=== PATIENT | male | born 1950 | race Caucasian/White ===

== ENCOUNTER → 2016-11-03 | Outpatient (CLI) | payer OTHER, MEDICARE | LOC: BHLMT 15:00 | PROVIDERS: ATTEND Internal Medicine Cardiovascular Disease | DX: I25.10 Atherosclerotic heart disease of native coronary artery without angina pectoris (principal); E78.5 Hyperlipidemia, unspecified; I10 Essential (primary) hypertension | CPT/HCPCS: 93005-PO ==

== ENCOUNTER 2017-04-26 17:34 | Observation (INO) | payer OTHER, MEDICARE ==
--- NOTE | 2017-04-26 17:43 | CPEKG ---
Heart Rate: 84 RR Interval: 714 P-R Interval: 204 QRSD Interval: 126 QT Interval: 404 QTC Interval: 478 P [place]: 74 QRS [place]: 73 T Wave [place]: 54 EKG Severity - ABNORMAL ECG - EKG Impression: SINUS RHYTHM EKG Impression: RIGHT BUNDLE BRANCH BLOCK Electronically Signed By: Osman Camarena 27-Apr-2017 08:13:40
[2017-04-26 17:58] LABS: % IMMATURE GRANULYOCYTES 0.3 % (0.0-1.1); ABSOLUTE IMMATURE GRANULOCYTES 0.03 10^3/uL (0.00-0.10); ADD DIFF? NO; ADD MORPH? NO; ADD SCAN? NO; ATYPICAL LYMPHOCYTE FLAG 10 (0-99); FRAGMENT RBC FLAG 0 (0-99); HEMOGLOBIN 17.5 g/dL (13.7-17.5); LEFT SHIFT FLG 0 (0-99); LIPEMIA HEMOLYSIS FLAG 90 (0-99); MEAN CELL HEMOGLOBIN CONCENTR. 35.7 g/dL (32.4-36.7); MEAN CELL VOLUME 89.6 fL (81.5-99.8); MEAN PLATELET VOLUME 9.5 fL (8.7-11.7); PLATELET CLUMPS FLAG 0 (0-99); PLATELET COUNT 238 10^3/uL (150-400); RED BLOOD CELL COUNT 5.47 10^6/uL (4.40-6.38); RED CELL DISTRIBUTION WIDTH 12.5 % (11.5-15.2)
--- NOTE | 2017-04-26 18:05 | EDPHY ---
General Narrative: CHIEF COMPLAINT: Chest pain, shortness of breath HISTORY OF PRESENT ILLNESS: Patient complains of chest pain, high blood pressure, headache and shortness of breath. The high blood pressure and headache started 3 days ago. Gradual onset. Intermittent duration. [id number]. No neck pain or stiffness. Some shortness of breath with this. Chest pain started 2 hours prior to arrival. This is left-sided. It radiates to the back. Worse with exertion. Shortness of breath is associated with. No nausea or vomiting. Some diaphoresis. Some cold chills. No recent travel or trauma. No history of venous thrombolic event. Does have extensive coronary artery disease status post CABG and stents. Positive family history for coronary artery disease. No other associated complaints or modifying factors. REVIEW OF SYSTEMS: Ten systems reviewed and are negative unless otherwise noted in the HPI PCP: Dr. Lan SPECIALISTS: Dr. Pope PAST MEDICAL HISTORY: Coronary artery disease status post CABG a stent placement PAST SURGICAL HISTORY: CABG, hernia repair, finger amputation SOCIAL HISTORY: Nonsmoker. No alcohol. Lives here with his FAMILY HISTORY: Noncontributory EXAMINATION General Appearance: Alert, no distress Head: normocephalic, atraumatic Eyes: Pupils equal and round, no conjunctival pallor or injection ENT, Mouth: Mucous membranes moist Neck: Normal inspection, supple, non-tender Respiratory: Lungs are clear to auscultation. No wheezing, rhonchi or crackles Cardiovascular: Regular rate and rhythm. No murmur. Gastrointestinal: Abdomen is soft and nontender Back: non-tender, no bony abnormalities Neurological: A&O, nonfocal, normal gait Skin: Warm and dry, no rash Extremities: Nontender, no pedal edema Psychiatric: Mood and affect normal DIFFERENTIAL DIAGNOSES: Including but not limited to ACS, PE, pneumonia, CHF MDM: 6:03 p.m. Chest pain of 2 hours duration with shortness of breath and dyspnea on exertion. Patient is mildly tachypneic at time of arrival. This is a patient with extensive coronary artery disease with CABG, 3 stents prior CABG, 2 stents post CABG. He has not have a stress test or heart catheterization with in 2 years. Does not know what is echocardiogram was. I have ordered cardiac labs, D-dimer, chest x-ray. Plan for admission to the hospital for serial troponins 7:00 p.m. Chest x-ray unremarkable. Laboratory studies are negative, but troponin is pending. 8:00 p.m. Troponin is negative. D-dimer negative. Serum creatinine is mildly elevated but relatively close to baseline. I discussed the case with the hospitalist. He will be admitted in stable condition for serial troponins. Repeat EKG has been requested by Dr. Man and this is currently being obtained. Suspect that this is stable angina versus unstable angina. - Diagnostics Imaging Results: Imaging Impressions Chest X-Ray 04/26/17 18:02 Impression: Clear lungs. No acute cardiopulmonary process. - History Smoking Status: Never smoked - Objective Vital Signs: Initial Vital Signs Temperature (C) 97.5 F 04/26/17 17:48 Heart Rate 76 04/26/17 17:48 Respiratory Rate 21 H 04/26/17 17:48 Blood Pressure 111/74 04/26/17 17:48 O2 Sat (%) 98 04/26/17 17:48 O2 Delivery Mode Room Air Allergies/Adverse Reactions: clindamycin Allergy (Verified 04/26/17 17:46) Home Medications: Medication Instructions Recorded Aspirin [Aspirin 325 mg (*)] 325 mg PO DAILY 06/10/16 Atorvastatin Calcium [Lipitor 80 80 mg PO DAILY 06/10/16 mg] DULoxetine [Cymbalta 60 MG (*)] 60 mg PO DAILY 06/10/16 Herbals/Supplements -Info Only 1 ea PO DAILY 06/10/16 Hydrochlorothiazide [HCTZ (*)] 25 mg PO DAILY 06/10/16 Lisinopril [Zestril 10 mg (*)] 10 mg PO DAILY 06/10/16 Multivitamins [Multivitamin (*)] 1 each PO DAILY 06/10/16 Nebivolol HCl [Bystolic 5 mg (*)] 5 mg PO DAILY 06/10/16 [place]-3 Fatty Acids [Fish Oil 1000 1,000 mg PO DAILY 06/10/16 mg (*)] traMADol [Ultram 50 mg (*)] 50 mg PO HS 06/10/16 Clopidogrel Bisulfate [Plavix (*)] 75 mg PO HS 04/26/17 Docusate Sodium [Colace 100 MG (*)] 100 mg PO Q2D 04/26/17 traZODone [traZODONE 100MG (*)] 100 mg PO HS 04/26/17 Laboratory Results: Laboratory Results 04/26/17 17:47 04/26/17 17:47 04/26/17 04/26/17 04/26/17 17:47 17:47 17:47 WBC 9.84 10^3/uL H 10^3/uL (3.80-9.50) RBC 5.47 10^6/uL 10^6/uL (4.40-6.38) Hgb 17.5 g/dL g/dL (13.7-17.5) Hct 49.0 % % (40.0-51.0) MCV 89.6 fL fL (81.5-99.8) MCH 32.0 pg pg (27.9-34.1) MCHC 35.7 g/dL g/dL (32.4-36.7) RDW 12.5 % % (11.5-15.2) Plt Count 238 10^3/uL 10^3/uL (150-400) MPV 9.5 fL fL (8.7-11.7) Neut % (Auto) 79.2 % H % (39.3-74.2) Lymph % (Auto) 10.4 % L % (15.0-45.0) [place] % (Auto) 8.7 % % (4.5-13.0) Eos % (Auto) 0.9 % % (0.6-7.6) Baso % (Auto) 0.5 % % (0.3-1.7) Nucleat RBC Rel Count 0.0 % % (0.0-0.2) Absolute Neuts (auto) 7.79 10^3/uL H 10^3/uL (1.70-6.50) Absolute Lymphs (auto) 1.02 10^3/uL 10^3/uL (1.00-3.00) Absolute Monos (auto) 0.86 10^3/uL H 10^3/uL (0.30-0.80) Absolute Eos (auto) 0.09 10^3/uL 10^3/uL (0.03-0.40) Absolute Basos (auto) 0.05 10^3/uL 10^3/uL (0.02-0.10) Absolute Nucleated RBC 0.00 10^3/uL 10^3/uL (0-0.01) Immature Gran % 0.3 % % (0.0-1.1) Immature Gran # 0.03 10^3/uL 10^3/uL (0.00-0.10) PT 13.4 SEC SEC (12.0-15.0) INR 1.03 (0.83-1.16) APTT 29.2 SEC SEC (23.0-38.0) D-Dimer < 0.27 ug/mLFEU ug/mLFEU (0.00-0.50) Sodium 140 mEq/L mEq/L (134-144) Potassium 4.0 mEq/L mEq/L (3.5-5.2) Chloride 106 mEq/L mEq/L (97-110) Carbon Dioxide 19 mEq/l L mEq/l (22-31) Anion Gap 15 mEq/L mEq/L (8-16) BUN 29 mg/dL H mg/dL (7-23) Creatinine 1.5 mg/dL H mg/dL (0.7-1.3) Estimated GFR 47 Glucose 158 mg/dL H mg/dL (70-100) Calcium 10.3 mg/dL mg/dL (8.5-10.4) Total Bilirubin 1.4 mg/dL mg/dL (0.1-1.4) Conjugated Bilirubin 0.4 mg/dL mg/dL (0.0-0.5) Unconjugated Bilirubin 1.0 mg/dL mg/dL (0.0-1.1) AST 30 IU/L IU/L (17-59) ALT 55 IU/L IU/L (21-72) Alkaline Phosphatase 102 IU/L IU/L (38-126) Troponin I < 0.012 ng/mL ng/mL (0.000-0.034) NT-Pro-B Natriuret Pep 459 pg/mL H pg/mL (0-125) Total Protein 7.5 g/dL g/dL (6.3-8.2) Albumin 4.7 g/dL g/dL (3.5-5.0) Lipase 66 IU/L IU/L (23-300) Medications Given: Acetaminophen (Tylenol) 650 mg PO Q4HRS PRN PRN Reason: Pain, Mild/Fever, Can Take PO Stop: 10/23/17 19:17 Last Admin: 04/26/17 21:28 Dose: 650 mg Atorvastatin Calcium (Lipitor) 80 mg PO HS [facility] Stop: 10/23/17 20:59 Last Admin: 04/26/17 21:28 Dose: 80 mg Clopidogrel Bisulfate (Plavix) 75 mg PO HS [facility] Stop: 10/23/17 20:59 Last Admin: 04/26/17 21:28 Dose: 75 mg Duloxetine HCl (Cymbalta) 60 mg PO [facility] Stop: 10/23/17 20:59 Last Admin: 04/26/17 21:27 Dose: 60 mg Heparin Sodium (Porcine) (Heparin 50 Units/Ml (Premix)) 500 mls @ 0 mls/hr IV CONT FROYLAN; Per Protocol PRN Reason: Protocol Stop: 10/23/17 19:44 Last Admin: 04/26/17 21:13 Dose: 500 mls Sodium Chloride (Ns) 1,000 mls @ 75 mls/hr IV CONT [facility] Stop: 10/23/17 19:59 Last Admin: 04/26/17 21:14 Dose: 1,000 mls Tramadol HCl (Ultram) 100 mg PO BID [facility] Stop: 10/23/17 20:59 Last Admin: 04/26/17 21:27 Dose: 100 mg Trazodone HCl (Trazodone) 100 mg PO [facility] Stop: 10/23/17 20:59 Last Admin: 04/26/17 21:28 Dose: 100 mg Discontinued Medications Aspirin (Aspirin) 325 mg PO EDNOW ONE Stop: 04/26/17 19:24 Last Admin: 04/26/17 21:21 Dose: Not Given Aspirin (Aspirin) 325 mg PO EDNOW ONE Stop: 04/26/17 19:24 Last Admin: 04/26/17 21:19 Dose: Not Given Heparin Sodium (Porcine) (Heparin Injection) 0 unit IVP ONCE ONE PRN Reason: Protocol Stop: 04/26/17 19:46 Last Admin: 04/26/17 21:11 Dose: 5,882 units Departure - Departure Disposition: [facility] Acute Clinical Impression: Stable angina CAD (coronary artery disease) Qualifiers: Coronary Disease-Associated Artery/Lesion type: unspecified vessel or lesion type [place] vs. transplanted heart: [place] heart Associated angina: with stable angina Qualified Code(s): I25.118 - Atherosclerotic heart disease of [place] coronary artery with other forms of angina pectoris Condition: Good Referrals: Lexi Lan MD [[facility] Primary Care Provider] - As per Instructions
[2017-04-26 18:09] LABS: INR 1.03 (0.83-1.16); PROTIME(PATIENT) 13.4 SEC (12.0-15.0)
[2017-04-26 18:10] LABS: APTT 29.2 SEC (23.0-38.0)
[2017-04-26 18:21] LABS: ALANINE AMINOTRANSFERASE 55 IU/L (21-72); ALBUMIN 4.7 g/dL (3.5-5.0); ALKALINE PHOSPHATASE 102 IU/L (38-126); ANION GAP 15 mEq/L (8-16); ASPARTATE AMINOTRANSFERASE 30 IU/L (17-59); BILIRUBIN,TOTAL 1.4 mg/dL (0.1-1.4); BILIRUBIN-CONJUGATED 0.4 mg/dL (0.0-0.5); CALCIUM 10.3 mg/dL (8.5-10.4); CARBON DIOXIDE 19 mEq/l (22-31); CHLORIDE 106 mEq/L (97-110); CREATININE 1.5 mg/dL (0.7-1.3); GLOMERULAR FILTRATION RATE 47; GLUCOSE 158 mg/dL (70-100); SODIUM 140 mEq/L (134-144); TOTAL PROTEIN 7.5 g/dL (6.3-8.2)
[2017-04-26 18:30] LABS: TROPONIN I < 0.012 ng/mL (0.000-0.034)
--- NOTE | 2017-04-26 19:08 | CPEKG ---
Heart Rate: 66 RR Interval: 909 P-R Interval: 204 QRSD Interval: 126 QT Interval: 428 QTC Interval: 449 P [place]: 42 QRS [place]: 64 T Wave [place]: 53 EKG Severity - ABNORMAL ECG - EKG Impression: SINUS RHYTHM EKG Impression: RIGHT BUNDLE BRANCH BLOCK Electronically Signed By: Osman Camarena 27-Apr-2017 08:13:34
[2017-04-26] MEDS ORDERED: ACETAMINOPHEN 325 MG TAB PO PRN ×2 (19:18→19:53)
[2017-04-26] MEDS ORDERED: ONDANSETRON DISINTEGRATING 4 MG TAB PO PRN ×2 (19:18→19:53)
[2017-04-26] MEDS ORDERED: ONDANSETRON 4 MG/2 ML VIAL IVP PRN ×2 (19:18→19:53)
[2017-04-26] MEDS ORDERED: NITROGLYCERIN 0.4 MG BTL SL PRN ×2 (19:23→19:58)
[2017-04-26] MEDS ORDERED: ASPIRIN 325 MG TAB PO ONE ×2 (19:23)
[2017-04-26] MEDS ORDERED: HEPARIN 10,000 UNIT/10 ML MDV IVP ONE (19:45)
[2017-04-26] MEDS ORDERED: HEPARIN/DEXTROSE 500 ML IV SCH (19:45)
[2017-04-26] MEDS ORDERED: HEPARIN 10,000 UNIT/10 ML MDV IVP PRN (19:45)
--- NOTE | 2017-04-26 20:26 | GHP ---
[f rep st] HISTORY AND PHYSICAL DATE OF ADMISSION: 04/26/2017 CHIEF COMPLAINT: Chest pain. HISTORY OF PRESENT ILLNESS: The patient is a 66-year-old male with an extensive cardiac history including a total of 7 stents and a prior 4-vessel CABG, all of which occurred in 2007 and 2008, who presents to the emergency department with chest pressure. He states his symptoms started 2 days ago. He describes them as chest tightness that occurs with an attempt to do any activity. He tends to be chest free at rest but, when he gets up to do activity , he starts to feel chest tightness. He endorses associated diaphoresis, nausea and some shortness of breath. He describes intermittent diaphoresis and nausea over the past 2 days. At the time of my evaluation, he is chest pain- free. In the emergency department, an EKG reveals sinus rhythm with a right bundle branch block; this is new from his prior EKG in 2016. His initial troponin is negative. He also has a negative D-dimer. He will be given a full-dose aspirin in the emergency department and admitted to the progressive care unit for ongoing management. PAST MEDICAL HISTORY: 1. Coronary artery disease, status post a total of 7 cardiac stents. 2. History of 4-vessel CABG. 3. Hypertension. 4. Hyperlipidemia. 5. Depression and anxiety. 6. Chronic back pain secondary to spinal stenosis. PAST SURGICAL HISTORY: 1. 4-vessel CABG in 2007. 2. History of 2 prior angiograms in 2007 in 2008. SOCIAL HISTORY: The patient lives independently with his . He is a lifetime nonsmoker. He reports occasional alcohol use. He denies drug use. 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 FAMILY HISTORY: Reviewed and noncontributory. REVIEW OF SYSTEMS: A 10-point review of systems was performed and is negative as per HPI. PHYSICAL EXAMINATION: VITAL SIGNS: Temperature is 36.6, current blood pressure of 96/74, heart rate 63, respiratory rate 16. He is 94% on room air. GENERAL: Patient is awake, alert, oriented, in no acute distress. HEENT: Head is atraumatic, normocephalic. Pupils equal, round, react to light. Extraocular muscles intact. Oropharynx clear. Ears are moist. NECK: Supple. There is no JVD. HEART: Regular rate without murmur. LUNGS: Clear to auscultation bilaterally. ABDOMEN: Soft, nontender. Normoactive bowel sounds. EXTREMITIES: Without cyanosis, clubbing, or edema. NEUROLOGIC: Grossly nonfocal. LABORATORY DATA: CBC reveals a white blood cell count of 9.8, hematocrit 49. INR is 1.03. D-dimer is negative. Basic metabolic panel shows normal electrolytes though slightly low serum bicarb of 19. Creatinine of 1.5 which is up from his baseline of around 1. Initial troponin is negative. NT proBNP is 459. LFTs are normal. EKG on arrival shows normal sinus rhythm with a right bundle branch block. There appears to be some downsloping ST segments in the anterior leads which were not present on prior EKG; however, this is difficult to interpret given his right bundle branch block. It is noted this right bundle is new and was not present on his prior EKG in April 2016. Chest x-ray, personally reviewed and interpreted, shows clear lungs with no acute cardiopulmonary process. ASSESSMENT AND PLAN: The patient is a 66-year-old male with a history of extensive coronary artery disease, who presents to the emergency department with chest pain concerning for unstable angina. 1. Unstable angina. It is reassuring that the patient has a negative troponin as his chest pain started 2 days ago. He does have some EKG changes compared to his previous EKG in 2016. He is currently chest pain free at rest. He will be admitted to the progressive care unit. He will be made nothing by mouth at midnight. I will give him a full-dose aspirin now and continue his Plavix. In addition, we will start a heparin drip with a bolus and continue his statin. I am going to defer beta donis for now given his mild hypotension. We will provide p.r.n. sublingual nitroglycerin for recurrent chest pain. I discussed the case with on-call convex grinder, Dr. Camarena. We will plan to keep him nothing by mouth at midnight for angiogram in the morning. Should he have any acute changes overnight with increase in chest pain or a rise in his troponin, he may need to be catheterized more urgently. 2. Coronary artery disease with history of prior coronary artery bypass graft. The patient will be continued on his aspirin, Plavix and statin. As above holding beta donis due to hypotension and will likely proceed to the catheterization lab in the morning. 3. Acute kidney injury. I suspect this may be prerenal as he reports decreased oral intake recently. We will gently hydrate him overnight with normal saline and recheck this in the morning. Hopefully, it is improved as he will likely require contrast load with his angiogram. 4. Hypertension. Patient is currently hypotensive and I am holding his antihypertensives at this time. 5. Metabolic acidosis, query starvation ketosis. Again, gentle hydration is planned. We will recheck this in the morning. 6. Full code 7. DVT PPLX, on heparin 8. Dispo, obs /[id number]/MODL MTDD
[2017-04-26] MEDS ORDERED: ATORVASTATIN CALCIUM 40 MG TAB PO SCH (21:00)
[2017-04-26] MEDS ORDERED: traZODone 100 MG TAB PO SCH (21:00)
[2017-04-26] MEDS ORDERED: DULoxetine 60 MG CAP PO SCH (21:00)
[2017-04-26] MEDS ORDERED: CLOPIDOGREL BISULFATE 75 MG TAB PO SCH (21:00)
[2017-04-26] MEDS: NS 1,000 ML IV SCH (21:14)
[2017-04-26] MEDS: traMADol 50 MG TAB PO SCH (21:27)
[2017-04-27 05:34] LABS: ANION GAP 10 mEq/L (8-16); CALCIUM 9.7 mg/dL (8.5-10.4); CARBON DIOXIDE 25 mEq/l (22-31); CHLORIDE 104 mEq/L (97-110); CREATININE 1.5 mg/dL (0.7-1.3); GLOMERULAR FILTRATION RATE 47; GLUCOSE 101 mg/dL (70-100); POTASSIUM 3.8 mEq/L (3.5-5.2); SODIUM 139 mEq/L (134-144)
[2017-04-27] MEDS: traMADol 50 MG TAB PO SCH (08:40)
[2017-04-27] MEDS ORDERED: FLU VACC QS 2017-18 (3YR+)/PF 0.5 ML SYR (FLUARIX QUAD) IM ONE (08:45)
[2017-04-27 08:53] VITALS: RESP 17
[2017-04-27] MEDS ORDERED: ASPIRIN 325 MG TAB PO SCH (09:00)
[2017-04-27] MEDS ORDERED: DOCUSATE SODIUM 100 MG CAP PO SCH (09:00)
--- NOTE | 2017-04-27 09:05 | PDHPUP ---
History & Physical Update H&P update statement: This history and physical update is based on an assessment of the patient which was completed after admission or registration (within 24 hours), but prior to the surgery/procedure. H&P update: H&P reviewed & patient examined, no change in patient's condition since H&P completed
--- NOTE | 2017-04-27 09:05 | PDPROPOC ---
Sedation Plan of Care Sedation Plan of Care: vital signs stable, mental status noted, patient educated of risks, benefits, alternatives, patient can tolerate sedation ASA Classification: ASA 2 Planned drugs: fentanyl, midazolam Mallampati Score: Class 2 Mallampati Reference Image: Patient passed 3-3-2 rule?: Yes
[2017-04-27] MEDS ORDERED: diphenhydrAMINE 25 MG CAP PO ONE ×2 (09:14→11:26)
[2017-04-27] MEDS ORDERED: ASPIRIN EC 325 MG TAB PO ONE (09:14)
[2017-04-27] MEDS ORDERED: DIAZEPAM 5 MG TAB PO ONE (09:14)
[2017-04-27] MEDS ORDERED: FAMOTIDINE 20 MG TAB PO ONE (09:14)
[2017-04-27] MEDS ORDERED: NS 1,000 ML IV ONE (09:14)
[2017-04-27] MEDS: NS 1,000 ML IV SCH (10:44)
--- NOTE | 2017-04-27 11:10 | ASMTCMCOM ---
CM Note CM Note Notes: Chart reviewed. Pt living independent with spouse prior to admission. He has significant coronary history, NTBD at this time. CM to follow. Date Signed: 04/27/2017 11:09 AM Electronically Signed By:Jonelle Warren RN
--- NOTE | 2017-04-27 11:14 | ASMTCMCOM ---
CM Note CM Note Notes: Please disregard note an follow previous note with NTBD. Chart reviewed. Discussed status with patient RN. No needs identified at present time. CM available should needs arise. Date Signed: 04/27/2017 03:54 PM Electronically Signed By:Jonelle Warren RN
[2017-04-27] MEDS ORDERED: DIAZEPAM 5 MG TAB ONE (11:26)
[2017-04-27] MEDS ORDERED: FAMOTIDINE 20 MG TAB ONE (11:27)
[2017-04-27] MEDS ORDERED: LIDOCAINE 1% 300 MG/30 ML SDV ONE (12:13)
[2017-04-27] MEDS ORDERED: MIDAZOLAM 2 MG/2 ML VIAL ONE (12:14)
[2017-04-27] MEDS ORDERED: fentaNYL 100 MCG/2 ML INJ ONE ×2 (12:14→13:12)
[2017-04-27] MEDS ORDERED: IOPAMIDOL (ISOVUE-370) 150 ML BTL IV ONE (12:14)
--- NOTE | 2017-04-27 14:40 | CPIP ---
[f rep st] INVASIVE CARDIAC PROCEDURE DATE OF PROCEDURE: 04/27/2017 PROCEDURE: 1. Coronary angiography. 2. Bypass graft angiography. 3. Left ventricular end-diastolic pressure. INDICATION: Acute coronary syndrome. ACCESS: The patient was prepped and draped in sterile fashion. 1% lidocaine was used to anesthetize the right inguinal region. A 6-Guamanian introducer sheath was placed selectively into the right commo n femoral artery via modified Seldinger technique. CORONARY ANGIOGRAPHY: A 6-[place]amanian JL4 was advanced to where the left main coronary artery would be. T here was no left main coronary artery. The patient had dual ostia for his left anterior descending c oronary artery and circumflex coronary arteries. The 6-[place]ian JL4 was advanced to the left anterior descending coronary artery and images obtained. The left anterior descending coronary artery had a s rose discrete 100% stenosis in the proximal segment. The 6-[place]ian JL4 was then placed in the circum flex coronary artery and images obtained. The circumflex coronary artery is a moderate-sized vessel. The circumflex coronary artery is nondominant. Circumflex coronary artery had mild diffuse disease throughout. There was no stenosis greater than 10% to 15%. The first OM artery was a large vessel. The first OM artery had a proximal long segmental 30% stenosis present. The distal OM artery is be ing filled by a saphenous vein graft. The 6-[place]ian JR4 was advanced to the right coronary artery and images obtained. The right coronary artery is dominant. The right coronary artery was previously s tented in the proximal and distal segments. The previously placed stents are widely patent with no e vidence of in-stent restenosis. In the midvessel there is a long segmental 40%-50% stenosis present. BYPASS GRAFT ANGIOGRAPHY: A 6-[place] JR4 was used to engage the saphenous vein graft to diagonal art katarina. The saphenous vein graft to diagonal artery was widely patent, with no evidence of significant stenosis. A 6-[place] LCB catheter was used to engage the saphenous vein graft to OM artery. The sap henous vein graft to OM artery was widely patent. A 6-[place]ian GITA catheter was used to engage the PAVON A to LAD graft. The RODRIGUEZ to LAD graft was widely patent. LEFT VENTRICULAR END-DIASTOLIC PRESSURE: A 6-[place]ian pigtail catheter was advanced to the left ventri mahesh and left ventricular end-diastolic pressure obtained. The left ventricular end-diastolic pressur e was mildly elevated at 20 mmHg. COMPLICATIONS: None. CONCLUSIONS: 1. 2-vessel coronary artery disease. 2. Patent bypass graft to the left anterior descending coronary artery, diagonal coronary artery and OM coronary artery. 3. Patent right coronary artery stents with no evidence of significant in-stent restenosis. 4. Mildly elevated left ventricular end-diastolic pressure. PLAN: For medical management. /[id number]/MODL
[2017-04-27] MEDS ORDERED: ATROPINE SULFATE 1 MG/10 ML SYR IVP PRN (14:54)
[2017-04-27 15:40] VITALS: BP 145/81; PULSE 50; TEMP 97.5; O2SAT 96
--- NOTE | 2017-04-27 18:52 | GCON ---
[f rep st] CONSULTATION DATE OF CONSULTATION: 04/27/2017 CHIEF COMPLAINT: We have been asked by Dr. Man to evaluate patient with a chief complaint of sameera st pain. HISTORY OF PRESENT ILLNESS: Patient is a 66-year-old gentleman with known coronary artery disease, w ho presents with a chief complaint of chest pain. The patient was in his usual state of health until approximately 2-3 days prior to admission, when he began to experience symptoms of chest pain. The chest pain is described as a pressure radiating around his chest. It is associated with nausea and sh ortness of breath on some occasions but not all occasions. The chest discomfort is associated with e xertion but can also occur at rest. The chest discomfort was not exactly like his previous angina bu t was similar in many respects prompting him to seek further evaluation in the emergency department. In the emergency department, he had an EKG performed demonstrating a new right bundle branch block w ith no acute ST- or T-wave changes. His initial troponin was within normal limits. We have been con sulted to help in the further management of this patient. Patient does have known coronary artery di sease. In 2007, he presented with an anterior myocardial infarction, was treated with percutaneous c oronary intervention of his left anterior descending coronary artery. Later that same year, he devel oped in-stent restenosis of his LAD stent, and ultimately underwent CABG x4. In 2008, he developed r ecurrent anginal symptoms and was found to have an occluded saphenous vein graft to his right coronar y artery. His right coronary artery was treated with percutaneous coronary intervention at that time . The patient has done well until recently. PAST MEDICAL HISTORY: 1. Coronary artery disease. 2. Hypertension. 3. Hyperlipidemia. 4. Depression and anxiety. 5. Chronic back pain. MEDICATIONS: Please see medicine reconciliation form. SOCIAL HISTORY: Patient lives independently with his . He does not smoke. He denies problems w ith alcohol. FAMILY HISTORY: Noncontributory. REVIEW OF SYSTEMS: 10-point Review of Systems is negative, except as noted in HPI. PHYSICAL EXAMINATION: GENERAL: Patient is resting in bed. He does not appear to be in acute distre ss at this time. VITAL SIGNS: Temperature is afebrile. Pulse is 67. Blood pressure 100/65, respir atory rate 18, SaO2 94% on room air. HEENT: Normocephalic, atraumatic. Extraocular muscles intact. NECK: No JVD. No bruits. LUNGS: Clear to auscultation bilaterally. CARDIOVASCULAR: Regular ra te and rhythm. S1, S2. Grade 2/6 holosystolic murmur is noted at the left sternal border. ABDOMEN: Soft, nontender. Normoactive bowel sounds. No hepatosplenomegaly noted. Aorta could not be adequ ately palpated. EXTREMITIES: No clubbing, cyanosis, or edema. SKIN: No evidence of rash. NEURO: Patient is awake, alert, and oriented x3. LABORATORY: White blood cell count is 9.84. Hemoglobin is 17.5. Hematocrit 49.0, platelet count is 238. Sodium 139, potassium 3.8, chloride 104, CO2 25, BUN 39, creatinine 1.5. INR 1.03. D-dimer w ithin normal limits. EKG demonstrates sinus rhythm, right bundle branch block morphology. No acute ST- or T-wave changes. ASSESSMENT AND PLAN: Patient is a 66-year-old gentleman with known coronary artery disease, who pres ents with symptoms of chest pain. His chest pain is similar to his previous angina in some respects but different in other respects. His initial troponin is within normal limits. However, his EKG rock s demonstrate new right bundle branch block. Reviewed options for risk stratification including card iac catheterization and conservative management. The patient wishes to pursue cardiac catheterizatio n. We will arrange to have this performed. /[id number]/MODL
--- NOTE | 2017-04-27 18:57 | GDS ---
[f rep st] DISCHARGE SUMMARY DISCHARGE DIAGNOSES: 1. Noncardiac chest pain, suspect probable anxiety. 2. Coronary artery disease, status post previous stents and coronary artery bypass graft. 3. Acute renal failure due to dehydration. HISTORY: The patient is a 66-year-old male who has an extensive cardiac history including previous s tents that failed, leading to a 4-vessel CABG. He has done well for almost 10 years. He now represe nts with recurrence of chest pain. Given his complicated history, cardiology elected to bring him [facility] to cardiac catheterization. His catheterization looked great and his stents are wide open. T here has been no change from previous. His D-dimer was negative. Incidentally noted on presentation was a creatinine elevation of 1.5 when his baseline is normal. He was hydrated quite aggressively p rior to his cardiac catheterization, and according to pressure measurements during cath, Dr. Mark mckeon he is fully hydrated at this time. Recommendation per Cardiology is discontinuation of hydrochl orothiazide at discharge. He is probably okay to resume lisinopril in the morning. This should be f ollowed closely as an outpatient. DISCHARGE MEDICATIONS: Please see computerized record for full detailed list. The only medication c hange is discontinuation of hydrochlorothiazide. ADDITIONAL DISCHARGE INSTRUCTIONS: Repeat CHEM-7 in 1 week. Patient was seen and examined by me on the day of discharge. /[id number]/MODL
--- NOTE | 2017-04-28 12:46 | ASDISCHSUM ---
Discharge Information Plan Status:Home with No Needs Medically Cleared to Leave:04/27/2017 Discharge Date:04/27/2017 06:38 PM CM D/C Disposition: ADT D/C Disposition:Home, Routine, Self-Care Projected Discharge Date:04/27/2017 12:00 AM Transportation at D/C: Discharge Delay Reason: Follow-Up Date:04/27/2017 12:00 AM Discharge Slot: Final Diagnosis: Placement Information Patient Contact Information Contact Name:RAZ Relationship: Address:[address] City:[place] Alternate Phone: State/Zip Code:[place] [address] Email: Financial Information Financial Class: Primary Plan Desc:MEDICARE OUTPATIENT Primary Plan Number:[id number] Secondary Plan Desc:[employer]/M[employer] SUPPLEMENT Secondary Plan Number:[id number] Assessment Information [facility] CM Progress Note CM Note CM Note Notes: Chart reviewed. Pt living independent with spouse prior to admission. He has significant coronary history, NTBD at this time. CM to follow. Date Signed: 04/27/2017 11:09 AM Electronically Signed By:Jonelle Warren RN [facility] CM Progress Note CM Note CM Note Notes: Please disregard note an follow previous note with NTBD. Chart reviewed. Discussed status with patient RN. No needs identified at present time. CM available should needs arise. Date Signed: 04/27/2017 03:54 PM Electronically Signed By:Jonelle Warren RN Intervention Information Intervention Type:*MARISCAL-Signed Date of Service:04/27/2017 10:14 AM Patient Type:Observation Staff Member:Annette Musa Hours: Discipline: Severity: Comment:
== END 2017-04-27 18:38 | disposition home or self-care (01) ==
LOC: F2W 19:55
PROVIDERS: ADMIT Hospitalist; ATTEND Hospitalist
PROC: B2151ZZ Fluoroscopy of Left Heart using Low Osmolar Contrast (ICD-10-PCS; principal; 2017-04-26)
PROC: B2111ZZ Fluoroscopy of Multiple Coronary Arteries using Low Osmolar Contrast (ICD-10-PCS; principal; 2017-04-26)
PROC: 4A023N7 Measurement of Cardiac Sampling and Pressure, Left Heart, Percutaneous Approach (ICD-10-PCS; principal; 2017-04-26)
PROC: B21F1ZZ Fluoroscopy of Other Bypass Graft using Low Osmolar Contrast (ICD-10-PCS; principal; 2017-04-26)
DX: I25.119 Atherosclerotic heart disease of native coronary artery with unspecified angina pectoris (principal); I45.10 Unspecified right bundle-branch block; Z95.5 Presence of coronary angioplasty implant and graft; Z95.1 Presence of aortocoronary bypass graft; N17.9 Acute kidney failure, unspecified; E86.0 Dehydration; Z23 Encounter for immunization; I10 Essential (primary) hypertension; E78.5 Hyperlipidemia, unspecified; F41.8 Other specified anxiety disorders; M54.5 Low back pain
CPT/HCPCS: 71020; 90686; 93005; 93459; 99285; C1760; G0008; G0378; J1644; J2250; J3010; Q9967; 85520-90

== ENCOUNTER → 2017-11-01 | Outpatient (CLI) | payer OTHER, MEDICARE ==
[~2017-11-01] MED LIST: GADOBUTROL 10 ML VIAL IVP ONE
== END ==
LOC: FIMAGING 15:25
DX: G93.9 Disorder of brain, unspecified (principal); G95.9 Disease of spinal cord, unspecified; R90.82 White matter disease, unspecified
CPT/HCPCS: 70553; A9585

== ENCOUNTER → 2017-11-21 | Outpatient (CLI) | payer OTHER, MEDICARE | LOC: BHLMT 09:30 | PROVIDERS: ATTEND Internal Medicine Cardiovascular Disease | DX: I25.10 Atherosclerotic heart disease of native coronary artery without angina pectoris (principal) | CPT/HCPCS: 78452; 93017; A9500; J2785 ==

== ENCOUNTER → 2017-12-05 | Outpatient (CLI) | payer OTHER, MEDICARE | LOC: BHFA 13:15 | PROVIDERS: ATTEND Internal Medicine Cardiovascular Disease | DX: I25.10 Atherosclerotic heart disease of native coronary artery without angina pectoris (principal); I10 Essential (primary) hypertension ==